=== PATIENT | female | born 1975 | race Hispanic/Latino ===

== ENCOUNTER 2017-10-24 10:43 | Day surgery (SDC) | payer OTHER ==
[2017-10-23 13:43] VITALS: BMI 34.2
[2017-10-24] MEDS ORDERED: Succinylcholine Chloride 20 MG/ML 10 ml SYRINGE FS ONE (12:17)
[2017-10-24] MEDS ORDERED: Dexamethasone 20 MG/5 ML VIAL ONE (12:17)
[2017-10-24] MEDS ORDERED: PROPOFOL 200 MG/20 ML VIAL ONE (12:17)
[2017-10-24] MEDS ORDERED: Lidocaine 1% PF 5 ML VIAL ONE (12:17)
[2017-10-24] MEDS ORDERED: PHENYLEPHRINE-NS 100 MCG/ML 10 ML SYRINGE ONE (12:17)
[2017-10-24] MEDS ORDERED: Fentanyl 100 MCG/2 ML VIAL ONE ×2 (12:57→15:31)
[2017-10-24] MEDS ORDERED: HYDROmorphone 0.5 MG/0.5 ML SYRINGE ONE (12:58)
[2017-10-24] MEDS ORDERED: Midazolam HCl 2 mg/2 ml Vial ONE (13:07)
[2017-10-24] MEDS ORDERED: Lidocaine 1% w/Epinephrine 1:200K 30 ML VIAL ONE (13:20)
[2017-10-24] MEDS ORDERED: Promethazine HCl 25 MG/ML VIAL ONE (15:56)
[2017-10-24] MEDS ORDERED: Hydrocodone-Acetamin 15 ML UDCUP ONE (17:29)
--- NOTE | 2017-10-25 15:36 | OP ---
DATE OF PROCEDURE: 10/24/2017 PREOPERATIVE DIAGNOSES: Left thyroid mass. POSTOPERATIVE DIAGNOSES: Left thyroid follicular adenoma. PROCEDURE PERFORMED: Left thyroid lobectomy. PROCEDURE IN DETAIL: After consent was obtained, the patient was identified, brought to the operatin g room and placed on the table in supine position. General endotracheal anesthesia was obtained and the patient was positioned for surgery. The laryngeal nerve monitoring endotracheal tube was documen regina to be in position and functioning well. We then positioned, prepped and draped the patient and p repared her for surgery. An incision was made in a natural skin crease in the lower neck and carried down through the skin, subcutaneous tissues, and platysma. Hemostasis was obtained and subplatysmal flaps were elevated both inferiorly and superiorly. A self-retaining retractor was placed and the s trap muscles were divided in midline. We turned our attention to the left thyroid gland and dissecte d the strap muscles from the thyroid capsule. The inferior, middle, and superior vessels were identi fied, isolated and divided between clamps and subsequently suture ligated. We then dissected the thy roid. We then dissected with caution the recurrent laryngeal nerve to its insertion into the cricoth yroid muscle and preserved the parathyroid glands. This then allowed for us to mobilize the thyroid medially as we dissected it from the pretracheal plane and to the thyroid ligament which was transect ed. This then allowed for easy mobilization of the gland and continued dissection medially along the pretracheal plane. The isthmus was divided and the specimen was sent for histologic evaluation and was found to appear benign though permanent section needed to be performed. We then turned our atte ntion to ensuring hemostasis and wound closure. A Valsalva was performed and all bleeding was contro lled with either the bipolar cautery or suture ligation. The decision was made not to place a drain because of the thoroughness of the hemostasis. We then closed the platysma muscle with interrupted M onocryl as we did the dermis and the skin was closed with 6-0 Prolene and sterile dressing was applie d. The patient was awakened, extubated with a strong voice and no obstructive breathing. The patien t was sent to the recovery room where she remained in stable condition prior to discharge home.
== END 2017-10-24 18:37 | disposition home or self-care (01) ==
LOC: SDC 10:43
PROVIDERS: ATTEND Specialist
PROC: 0GTG0ZZ Resection of Left Thyroid Gland Lobe, Open Approach (ICD-10-PCS; principal; 2017-10-24)
DX: D34 Benign neoplasm of thyroid gland (principal); E04.1 Nontoxic single thyroid nodule; Z79.899 Other long term (current) drug therapy; Z98.51 Tubal ligation status; Z98.891 History of uterine scar from previous surgery; Z98.890 Other specified postprocedural states
CPT/HCPCS: 85014; 88307; 88331; 88334; 96374; 96375; J1100; J1170; J2001; J2250; J2270; J2550; J2704; J3010

== ENCOUNTER 2017-12-19 08:37 | Outpatient (CLI) | payer OTHER | END 2017-12-19 08:38 | disposition home or self-care (01) | LOC: BICMAMMO 08:37 | PROVIDERS: ATTEND Nurse Practitioner Family | DX: Z12.31 Encounter for screening mammogram for malignant neoplasm of breast (principal) | CPT/HCPCS: 77067 ==

== ENCOUNTER 2018-05-21 08:30 | Emergency (ER) | payer OTHER ==
[2018-05-21] MEDS ORDERED: HYDROcodone/Acetaminophen 5/325 mg Tablet ONE (13:19)
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
== END 2018-05-21 14:00 | disposition home or self-care (01) ==
LOC: ERS 08:30
DX: S13.4XXA Sprain of ligaments of cervical spine, initial encounter (principal); S40.812A Abrasion of left upper arm, initial encounter; S40.811A Abrasion of right upper arm, initial encounter; D64.9 Anemia, unspecified; V86.59XA Driver of other special all-terrain or other off-road motor vehicle injured in nontraffic accident, initial encounter
CPT/HCPCS: 72125

== ENCOUNTER 2018-10-20 13:52 | Emergency (ER) | payer OTHER, SELFPAY ==
[2018-10-20] MEDS ORDERED: Acetaminophen 500 MG TAB ONE (14:18)
== END 2018-10-20 15:01 | disposition home or self-care (01) ==
LOC: ERS 13:52
DX: B34.9 Viral infection, unspecified (principal); D64.9 Anemia, unspecified
CPT/HCPCS: 87804; 99283

== ENCOUNTER 2018-11-05 03:45 | Emergency (ER) | payer SELFPAY ==
[2018-11-05] MEDS ORDERED: Cyclobenzaprine 10 MG TAB ONE (04:29)
[2018-11-05] MEDS ORDERED: Acetaminophen 500 MG TAB ONE (04:29)
== END 2018-11-05 04:47 | disposition home or self-care (01) ==
LOC: ERS 03:45
DX: M54.5 Low back pain (principal); D64.9 Anemia, unspecified
CPT/HCPCS: 99283

== ENCOUNTER 2018-11-26 13:00 | Outpatient (CLI) | payer MEDICAID ==
--- NOTE | 2018-11-26 15:35 | MMO ---
Bilateral MAMMO Bilat Screen [facility]. CLINICAL HISTORY: Patient is 43 years old and is seen for screening. The patient has no family history of breast cancer. The patient has no personal history of cancer. VIEWS: The views performed were: bilateral craniocaudal and bilateral mediolateral oblique. FILMS COMPARED: The present examination has been compared to prior imaging studies performed at [facility] on 11/19/2016 and 12/19/2017. This study has been interpreted with the assistance of computer-aided detection. MAMMOGRAM FINDINGS: The breasts are heterogeneously dense, which could obscure a lesion on mammography. There are no suspicious masses, calcifications or areas of architectural distortion. IMPRESSION: THERE IS NO MAMMOGRAPHIC EVIDENCE OF MALIGNANCY. A ROUTINE FOLLOW-UP MAMMOGRAM IN 1 YEAR IS RECOMMENDED. ACR BI-RADS Category 1 - Negative MAMMOGRAPHY NOTE: 1. A negative mammogram report should not delay a biopsy if a dominant of clinically suspicious mass is present. 2. Approximately 10% to 15% of breast cancers are not detected by mammography. 3. Adenosis and dense breasts may obscure an underlying neoplasm.
== END 2018-11-26 13:01 | disposition home or self-care (01) ==
LOC: SCSMAMMO 13:00
PROVIDERS: ATTEND Nurse Practitioner Family
DX: Z12.31 Encounter for screening mammogram for malignant neoplasm of breast (principal)
CPT/HCPCS: 77067

== ENCOUNTER 2022-04-26 08:30 | Outpatient (CLI) | payer MEDICAID | END 2022-04-26 08:31 | disposition home or self-care (01) | LOC: BICMAMMO 08:30 | PROVIDERS: ATTEND Nurse Practitioner Women's Health | DX: Z12.31 Encounter for screening mammogram for malignant neoplasm of breast (principal) | CPT/HCPCS: 77067 ==

== ENCOUNTER 2022-06-30 15:28 | Emergency (ER) | payer MEDICAID, SELFPAY ==
[2022-06-30 16:09] LABS: #Basophils 0.1 thou/uL (0.0-0.2); #Eosinphils 0.5 thou/uL (0.0-0.7); #Lymphocytes 1.5 thou/uL (1.20-3.40); #Monocytes 0.7 thou/uL (0.11-0.59); #Neutrophils 11.2 thou/uL (1.40-6.50); %Basophils 0.4 % (0.0-1.0); %Eosinophils 3.9 % (0.0-10.0); %Lymphocytes 10.5 % (21.0-51.0); %Monocytes 4.9 % (0.0-10.0); %Neutrophils 80.4 % (42.0-75.0); Hemoglobin 9.8 g/dL (12.0-16.0); Mean Corpuscular HGB CONC 31.1 g/dL (32.0-36.0); Mean Corpuscular Hemoglobin 19.2 pg (27.0-31.0); Mean Corpuscular Volume 61.5 fL (78.0-98.0); Mean Platelet Volume 4.9 fL (7.4-10.4); Platelet Count 380 thou/uL (130-400); RBC Distribution Width 17.5 % (11.5-14.5); Red Blood Cell (RBC) Count 5.09 mill/uL (4.20-5.40); White Blood Cell (WBC) Count 13.9 thou/uL (4.8-10.8)
[2022-06-30 16:19] LABS: PTT 29.8 sec (22.9-36.1); Prothrombin Time 13.7 sec (12.0-14.7)
[2022-06-30 16:24] LABS: ALT (SGPT) 14 U/L (8-55); AST (SGOT) 15 U/L (5-34); Albumin 4.3 g/dL (3.5-5.0); Alkaline Phosphatase 136 U/L (40-110); Anion Gap 14 mmol/L (10-20); BUN (Urea Nitrogen) 8 mg/dL (7.0-18.7); Bilirubin, Total 0.6 mg/dL (0.2-1.2); Calc. Creatinine Clearance 0 mL/min (70-130); Calcium 8.9 mg/dL (7.8-10.44); Carbon Dioxide 23 mmol/L (22-29); Chloride 102 mmol/L (98-107); Estimated GFR 104; Globulin 4.1 g/dL (2.4-3.5); Glucose 174 mg/dL (70-105); Potassium 3.5 mmol/L (3.5-5.1); Protein, Total 8.4 g/dL (6.0-8.3); Sodium 135 mmol/L (136-145)
[2022-06-30 16:27] LABS: Reflex for Review?? NO
[2022-06-30 16:28] LABS: Anisocytosis SLIGHT = 6-15 cells (100X) (0-5/hpf); Hypochromia MODERATE=16-30 cells (100X) (0-5/hpf); MDiff Complete? YES; Microcytosis MODERATE=15-30 cells (100X) (0-5/hpf); Ovalocytes SLIGHT = 2-5 cells (100X) (0-1/hpf); Platelet Morphology Comment Appears Adequate; Polychromasia MODERATE = 3-4 cells (100X) (0-2/hpf)
[2022-06-30] MEDS ORDERED: Acetaminophen 500 MG TAB ONE (16:36)
[2022-06-30 17:33] LABS: SARS-CoV-2 NAA Rapid Test Not Detected (NotDetected)
== END 2022-06-30 17:45 | disposition home or self-care (01) ==
LOC: ERS 15:28
DX: R07.89 Other chest pain (principal); R06.02 Shortness of breath; R05.9 Cough, unspecified; Z20.822 Contact with and (suspected) exposure to COVID-19
CPT/HCPCS: 36416; 71045; 80053; 83605; 83880; 84484; 85025; 85610; 85730; 87040; 93005; 94760